=== PATIENT | female | born 1970 | race Caucasian/White ===

== ENCOUNTER 2017-10-19 09:15 | Emergency (ER) | payer OTHER ==
[~2017-10-19 09:15] MED LIST: ASPI325T PO; IBUP-232 PO; TOPI50TA4 PO
[2017-10-19 09:24] VITALS: BP 121/82; PULSE 80; RESP 20; TEMP 97.7; O2SAT 98
[2017-10-19] MEDS ORDERED: TRAM50TA PO (09:31)
--- NOTE | 2017-10-19 09:33 | PD ---
HPI Chief Complaint: Abdominal Pain Time Seen by Provider: 09:28 Travel History International Travel<30 days: No Contact w/Intl Traveler<30days: No Traveled to known affect area: No History of Present Illness HPI This 47-year-old female is complaining of lower abdominal pain. She says the pain started this morning. She had some mild discomfort when she went to work. It is in the midline and bilateral. It is gotten progressively worse. She has not had fever or chills. She has no history of abdominal surgery. She has been having heavy periods recently her last one was 2 weeks ago. She does not think she is . She has had occasional rectal bleeding for some time. She says that now the pain is quite severe and she is a bit nauseated. She vomited once about 20 minutes again. PFSH Past Medical History Anxiety: Yes Heart Rhythm Problems: Yes (MVP) Cardiovascular Problems: Yes (? PROLAPSE VALUE) Chest Pain: Yes Diminished Hearing: No Migraines: Yes ?: Not LMP: 2 WEEKS AGO Past Surgical History Joint Replacement: Yes (RIGHT WRIST) Social History Alcohol Use: Yes (2-3 GLASSES WINE PER WEEK) Tobacco Use: No Substance Use: No Allergies-Medications (Allergen,Severity, Reaction): Coded Allergies: No Known Allergies (Verified Adverse Reaction, Unknown, 10/19/17) Reported Meds & Prescriptions Reported Meds & Active Scripts Active Reported Tramadol (Tramadol HCl) 50 Mg Tab Unknown Dose PO Q4H PRN Review of Systems General / Constitutional: No: Fever, Chills HENT: No: Headaches, Vertigo Cardiovascular: No: Chest Pain or Discomfort, Palpitations Respiratory: No: Cough, Shortness of Breath Gastrointestinal: Positive: Abdominal Pain Genitourinary: Positive: Pelvic Pain, No: Urgency, Frequency Musculoskeletal: No: Myalgias Skin: No Rash Neurologic: No: Weakness, Dizziness Endocrine: No: Heat Intolerance, Cold Intolerance Hematologic/Lymphatic: No: Easy Bruising Physical Exam Narrative GENERAL: Well-developed female SKIN: Focused skin assessment warm/dry. HEAD: Atraumatic. Normocephalic. EYES: Pupils equal and round. No scleral icterus. No injection or drainage. ENT: No nasal bleeding or discharge. Mucous membranes pink and moist. NECK: Trachea midline. No JVD. CARDIOVASCULAR: Regular rate and rhythm. No murmur appreciated. RESPIRATORY: No accessory muscle use. Clear to auscultation. Breath sounds equal bilaterally. GASTROINTESTINAL: Abdomen soft, non-tender, nondistended. Hepatic and splenic margins not palpable. There is lower abdominal tenderness which is bilateral Pelvic: Slight amount of white discharge. There is some pain with movement of the cervix. There is left adnexal tenderness greater than right MUSCULOSKELETAL: No obvious deformities. No clubbing. No cyanosis. No edema. NEUROLOGICAL: Awake and alert. No obvious cranial nerve deficits. Motor grossly within normal limits. Normal speech. PSYCHIATRIC: Appropriate mood and affect; insight and judgment normal. Data Data Last Documented VS Vital Signs Date Time Temp Pulse Resp B/P (MAP) Pulse Ox O2 Delivery O2 Flow Rate FiO2 10/19/17 12:03 71 20 116/68 (84) 98 10/19/17 09:24 97.7 Orders Orders Complete Blood Count With Diff (10/19/17 09:28) Comprehensive Metabolic Panel (10/19/17 09:28) Lipase (10/19/17 09:28) Urinalysis - C+S If Indicated (10/19/17 09:28) Beta Hcg (Quant/Titer) (10/19/17 09:28) Ct Abd/Pel W Iv Contrast(Rout) (10/19/17 09:28) Sodium Chlor 0.9% 1000 Ml Inj (Ns 1000 M (10/19/17 10:00) Ondansetron Inj (Zofran Inj) (10/19/17 10:00) Hydromorphone Pf Inj (Dilaudid Pf Inj) (10/19/17 10:00) Gc And Chlamydia Pcr (10/19/17 10:23) Wet Prep Profile (10/19/17 10:23) Iohexol 350 Inj (Omnipaque 350 Inj) (10/19/17 10:44) Us Pelvis Comp W Doppler (10/19/17 ) Labs Laboratory Tests Test 10/19/17 09:45 10/19/17 10:35 White Blood Count 9.5 TH/MM3 Red Blood Count 4.81 MIL/MM3 Hemoglobin 10.9 GM/DL Hematocrit 34.7 % Mean Corpuscular Volume 72.2 FL Mean Corpuscular Hemoglobin 22.8 PG Mean Corpuscular Hemoglobin Concent 31.5 % Red Cell Distribution Width 14.9 % Platelet Count 374 TH/MM3 Mean Platelet Volume 6.9 FL Neutrophils (%) (Auto) 80.5 % Lymphocytes (%) (Auto) 9.6 % Monocytes (%) (Auto) 9.2 % Eosinophils (%) (Auto) 0.3 % Basophils (%) (Auto) 0.4 % Neutrophils # (Auto) 7.7 TH/MM3 Lymphocytes # (Auto) 0.9 TH/MM3 Monocytes # (Auto) 0.9 TH/MM3 Eosinophils # (Auto) 0.0 TH/MM3 Basophils # (Auto) 0.0 TH/MM3 CBC Comment AUTO DIFF Differential Comment AUTO DIFF CONFIRMED Platelet Estimate NORMAL Platelet Morphology Comment NORMAL Ovalocytes 1+ Urine Collection Type VOIDED Urine Color YELLOW Urine Turbidity CLEAR Urine pH 7.5 Urine Specific [place] 1.020 Urine Protein NEG mg/dL Urine Glucose (UA) NEG mg/dL Urine Ketones NEG mg/dL Urine Occult Blood NEG Urine Nitrite NEG Urine Bilirubin NEG Urine Urobilinogen 0.2 MG/DL Urine Leukocyte Esterase NEG Urine WBC 0-2 /hpf Urine Squamous Epithelial Cells 0-2 /hpf Urine Mucus RARE /lpf Microscopic Urinalysis Comment CULT NOT INDICATED Blood Urea Nitrogen 9 MG/DL Creatinine 0.86 MG/DL Random Glucose 97 MG/DL Total Protein 7.4 GM/DL Albumin 3.5 GM/DL Calcium Level 8.9 MG/DL Alkaline Phosphatase 77 U/L Aspartate Amino Transf (AST/SGOT) 15 U/L Alanine Aminotransferase (ALT/SGPT) 20 U/L Total Bilirubin 0.2 MG/DL Sodium Level 139 MEQ/L Potassium Level 4.0 MEQ/L Chloride Level 106 MEQ/L Carbon Dioxide Level 24.3 MEQ/L Anion Gap 9 MEQ/L Estimat Glomerular Filtration Rate 71 ML/MIN Lipase 113 U/L Human Chorionic Gonadotropin, Quant LESS THAN 1 MIU/ML Clue Cells (Wet Prep) NONE SEEN Vaginal Trichomonas (Wet Prep) NONE SEEN Vaginal Yeast (Wet Prep) NONE SEEN MDM Medical Decision Making Medical Screen Exam Complete: Yes Emergency Medical Condition: Yes Medical Record Reviewed: Yes Differential Diagnosis Differential includes gastroenteritis, ovarian cyst, pelvic pain, diverticulitis Narrative Course Hemoglobin is 10.9 with a white count of 9000. Ultrasound does not show free fluid or cyst. Etiology for the pain has not been determined from the imaging studies. While in the ER the patient was given 0.5 Dilaudid and had some improvement in her pain. This did come back and she was given a second dose. She reports some discomfort at this time. I am suspicious that she may have had a leaking cyst though this has not been confirmed on the imaging. Diagnosis Primary Impression: Abdominal pain Qualified Codes: R10.30 - Lower abdominal pain, unspecified Scripts Oxycodone-Acetaminophen (Percocet) 7.5-325 mg Tab 1 TAB PO Q4H Y for PAIN, #12 TAB 0 Refills Prov: Juvenal Levy MD 10/19/17 Disposition: DISCHARGE HOME Condition: Stable Juvenal Levy MD Oct 19, 2017 09:33
[2017-10-19 09:53] VITALS: BP 124/79; PULSE 88; RESP 20; O2SAT 96
[2017-10-19 09:53] LABS: BILIRUBIN, URINE NEG (NEG); BLOOD, URINE NEG (NEG); GLUCOSE,URINE NEG (NEG); KETONE, URINE NEG (NEG); NITRITE,URINE NEG (NEG); PH, URINE 7.5 (5.0-8.5); URINE COLOR YELLOW (YELLW/STRAW); URINE LEUKOCYTE ESTERASE NEG (NEG)
[2017-10-19] MEDS ORDERED: SODIUM CHLOR 0.9% 1000 ML INJ 1,000 ML IV SCH (10:00)
[2017-10-19] MEDS ORDERED: ONDANSETRON HCL 4 MG/2 ML VIAL IV PUSH ONE (10:00)
[2017-10-19] MEDS ORDERED: HYDROmorphone HCL PF 2 MG/ML VIAL IV PUSH ONE (10:00)
[2017-10-19 10:08] LABS: AUTOMATED NEUTROPHIL # 7.7 TH/MM3 (1.8-7.7); BASOPHIL % 0.4 % (0.0-2.0); EOSINOPHIL % 0.3 % (0.0-4.0); HEMATOCRIT 34.7 % (35.0-46.0); HEMOGLOBIN 10.9 GM/DL (11.6-15.3); LYMPH % 9.6 % (9.0-44.0); LYMPHOCYTE # 0.9 TH/MM3 (1.0-4.8); MEAN CELL VOLUME 72.2 FL (80.0-100.0); MEAN CORPUSCULAR HEMOGLOBIN 22.8 PG (27.0-34.0); MEAN CORPUSCULAR HGB CONC 31.5 % (32.0-36.0); MEAN PLATELET VOLUME 6.9 FL (7.0-11.0); MONO % 9.2 % (0.0-8.0); MONOCYTE # 0.9 TH/MM3 (0-0.9); NEUT % 80.5 % (16.0-70.0); PLATELET COUNT 374 TH/MM3 (150-450); RED BLOOD COUNT 4.81 MIL/MM3 (4.00-5.30); RED CELL DISTRIBUTION WIDTH 14.9 % (11.6-17.2); WHITE BLOOD COUNT 9.5 TH/MM3 (4.0-11.0)
[2017-10-19 10:13] LABS: CHLORIDE 106 MEQ/L (98-107); SODIUM (NA) 139 MEQ/L (136-145)
[2017-10-19 10:17] LABS: ALBUMIN 3.5 GM/DL (3.4-5.0); BICARBONATE 24.3 MEQ/L (21.0-32.0); BLOOD UREA NITROGEN 9 MG/DL (7-18); CALCIUM 8.9 MG/DL (8.5-10.1); GLUCOSE,RANDOM 97 MG/DL (74-106)
[2017-10-19 10:20] LABS: ALT (GPT) 20 U/L (10-53); AST (GOT) 15 U/L (15-37); CREATININE 0.86 MG/DL (0.50-1.00); GLOMERULAR FILTRATION RATE 71 ML/MIN (>89)
[2017-10-19 10:22] LABS: TOTAL BILIRUBIN ADULT 0.2 MG/DL (0.2-1.0); TOTAL PROTEIN 7.4 GM/DL (6.4-8.2)
[2017-10-19 10:23] LABS: ALKALINE PHOSPHATASE 77 U/L (45-117)
[2017-10-19 10:26] LABS: MUCUS URINE RARE /lpf (OCC); SQUAMOUS EPITHELIAL CELL URINE 0-2 /hpf (0-5); WBC, URINE 0-2 /hpf (0-5)
[2017-10-19] MEDS ORDERED: IOHEXOL 350 MG/ML 10 ML VIAL (for RAD DIAG) IVCONTRAST ONE (10:44)
--- NOTE | 2017-10-19 10:54 | RADRPT ---
EXAM DATE/TIME: 10/19/2017 10:38 [facility] COMPARISON: No previous studies available for comparison. INDICATIONS : Bilateral lower abdominal pain since this morning. IV CONTRAST: 95 cc Omnipaque 350 (iohexol) IV ORAL CONTRAST: No oral contrast ingested. RADIATION DOSE: 7.64 CTDIvol (mGy) MEDICAL HISTORY : Mitral valve prolapse. SURGICAL HISTORY : None. ENCOUNTER: Initial ACUITY: 1 day PAIN SCALE: 5/10 LOCATION: Bilateral lower quadrant TECHNIQUE: Volumetric scanning of the abdomen and pelvis was performed. Using automated exposure control and ad justment of the mA and/or kV according to patient size, radiation dose was kept as low as reasonably achievable to obtain optimal diagnostic quality images. DICOM format image data is available electro nically for review and comparison. FINDINGS: LOWER LUNGS: The visualized lower lungs are clear. LIVER: Homogeneous density. There is a 9 mm cyst in the posterior right lobe of the liver. There is no dila tion of the biliary tree. No calcified gallstones. SPLEEN: Normal size without lesion. PANCREAS: Within normal limits. KIDNEYS: Normal in size and shape. There is no mass, stone or hydronephrosis. ADRENAL GLANDS: Within normal limits. VASCULAR: There is no aortic aneurysm. BOWEL/MESENTERY: The stomach, small bowel, and colon demonstrate no acute abnormality. There is no free intraperitone al air or fluid. The appendix is unremarkable. No inflammatory changes are seen. There is stool in th e colon. ABDOMINAL WALL: Within normal limits. RETROPERITONEUM: There is no lymphadenopathy. BLADDER: No wall thickening or mass. REPRODUCTIVE: Within normal limits. INGUINAL: There is no lymphadenopathy or hernia. MUSCULOSKELETAL: Within normal limits for patient age. CONCLUSION: 1. 9 mm right hepatic cyst. 2. No acute abdominal or pelvic pathology. Zack Bryson MD on October 19, 2017 at 10:49 Board Certified Radiologist. This report was verified electronically.
[2017-10-19 10:55] VITALS: BP 101/63; PULSE 82; RESP 20; O2SAT 97
[2017-10-19 11:17] LABS: OVALOCYTES 1+ (NORMAL)
[2017-10-19 12:03] VITALS: BP 116/68; PULSE 71; RESP 20; O2SAT 98
[2017-10-19] MEDS ORDERED: PERC7.5T13 PO (12:44)
[2017-10-19 13:00] VITALS: BP 108/68; PULSE 73; RESP 20; O2SAT 97
--- NOTE | 2017-10-19 13:21 | RADRPT ---
EXAM DATE/TIME: 10/19/2017 11:09 [facility] COMPARISON: No previous studies available for comparison. INDICATIONS : Pelvic pain. MEDICAL HISTORY : Migraine. Prolapse mitral valve. Anxiety. Chest pain. SURGICAL HISTORY : Right wrist surgery. ENCOUNTER: Initial ACUITY: 1 day PAIN SCORE: 6/10 LOCATION: Bilateral pelvis MEASUREMENTS: UTERUS: 12.3 x 7.6 x 5.6 cm ENDOMETRIAL STRIPE: 14 mm RIGHT OVARY: 2.7 x 1.8 x 1.4 cm LEFT OVARY: 2.6 x 3.0 x 2.4 cm FINDINGS: UTERUS: The myometrium has homogeneous echotexture without mass. There appears to be a 1 cm nabothian-type c yst in the cervix RIGHT OVARY: Ovary contains no mass or significant cystic lesion. LEFT OVARY: Ovary contains no mass or significant cystic lesion. MISCELLANEOUS: No free fluid. CONCLUSION: 1. 1 cm nabothian type cysts in the region of the cervix. 2. Otherwise negative. No free fluid. Doug Ramirez MD on October 19, 2017 at 13:17 Board Certified Radiologist. This report was verified electronically.
== END 2017-10-19 13:38 | disposition home or self-care (01) ==
LOC: PHED 09:15
DX: R10.30 Lower abdominal pain, unspecified (principal); R11.2 Nausea with vomiting, unspecified; Z86.79 Personal history of other diseases of the circulatory system; Z86.69 Personal history of other diseases of the nervous system and sense organs; Z86.59 Personal history of other mental and behavioral disorders
CPT/HCPCS: 74177; 76856; 80053; 81001; 83690; 84702; 85025; 87210; 87491; 87591; 93975; 96361; 96374; 96375; 99285; J1170; J2405; J7030; Q9967

== ENCOUNTER 2018-01-15 15:12 | Emergency (ER) | payer SELFPAY ==
[~2018-01-15] VITALS: Ht 175.3 cm; Wt 71.0 kg
[~2018-01-15 15:12] MED LIST changes: -ASPI325T PO; -IBUP-232 PO; +PERC7.5T13 PO; -TOPI50TA4 PO; +TRAM50TA PO
[2018-01-15 15:23] VITALS: BP 128/60; PULSE 89; RESP 16; TEMP 97.3; O2SAT 100
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
[2018-01-15] MEDS ORDERED: KETOROLAC TROMETHAMINE 60 MG/2 ML (IM) VIAL IM ONE (15:45)
[2018-01-15] MEDS ORDERED: ONDANSETRON ODT 4 MG TAB PO ONE (15:45)
[2018-01-15] MEDS ORDERED: DIAZEPAM 10 MG TAB PO ONE (15:45)
[2018-01-15] MEDS ORDERED: DIAZEPAM 5 MG TAB PO ONE (15:45)
[2018-01-15] MEDS ORDERED: ROBA750T PO (16:13)
[2018-01-15] MEDS ORDERED: MEDR4PAK PO (16:13)
[2018-01-15] MEDS ORDERED: KETO10 PO (16:13)
== END 2018-01-15 16:19 | disposition home or self-care (01) ==
LOC: PHEFT 15:12
DX: M54.2 Cervicalgia (principal); G89.29 Other chronic pain; F41.9 Anxiety disorder, unspecified; Z79.899 Other long term (current) drug therapy
CPT/HCPCS: 96372; 99283; J1885